=== PATIENT | male | born 1970 | race Caucasian/White ===

== ENCOUNTER 2024-11-08 00:07 | Emergency (ER) | payer MEDICAID, SELFPAY ==
--- NOTE | 2024-11-08 | ECG_ITS ---
Test Reason : CHEST PAIN Blood Pressure : */* mmHG Vent. Rate : 49 BPM Atrial Rate : 49 BPM P-R Int : 144 ms QRS Dur : 80 ms QT Int : 466 ms P-R-T Axes : 80 74 90 degrees QTcB Int : 420 ms Sinus bradycardia Septal infarct , age undetermined Abnormal ECG No previous ECGs available Referred By: Scott Trujillo Electronically Signed By: JUAN JOSE BORRERO MD
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
[2024-11-08 00:17] VITALS: BP 97/56; PULSE 52; RESP 20; TEMP 37; O2SAT 100
[2024-11-08 00:38] VITALS: BP 106/64; PULSE 70; O2SAT 98
[2024-11-08 00:42] VITALS: BP 90/53; PULSE 54; RESP 16; TEMP 37; O2SAT 100; BMI 21.7
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
[2024-11-08 01:13] LABS: MANUAL DIFF FLAG NO
[2024-11-08 01:19] LABS: Basophils Percent Auto 0.7 % (0-2); Eosinophils Absolute Auto 0.1 X10*3/uL (0.0-0.4); Eosinophils Percent Auto 1.3 % (0-4); Hematocrit 38.4 % (42.0-52.0); Hemoglobin 12.8 g/dl (14.0-18.0); Imm Gran Abs Auto 0.01 X10*3/uL (0.00-0.03); Imm Gran Pct Auto 0.2 % (0.0-0.4); Lymphocytes Absolute Auto 1.4 X10*3/uL (1.2-4.9); Mean Corpuscular HGB Conc 33.3 g/dl (31.0-36.0); Mean Corpuscular Hemoglobin 29.2 pg (27.0-33.0); Mean Corpuscular Volume 87.5 fL (80.0-98.0); Mean Platelet Volume 10.2 fL (9.4-12.4); Monocytes Absolute Auto 0.7 X10*3/uL (0.1-1.2); Monocytes Percent Auto 14.7 % (2-11); Neutrophils Absolute Auto 2.4 x10*3/uL (2.0-8.3); Neutrophils Percent Auto 53.1 % (45-73); Platelet Count 173 X10*3/uL (160-400); Red Blood Count 4.39 X10*6/uL (4.60-5.80); Red Cell Distribution Width 14.2 % (11.0-16.0); White Blood Count 4.6 X10*3/uL (4.8-10.8)
[2024-11-08 01:26] LABS: INTERNATIONAL NORM RATIO 1.1 (0.9-1.1); Prothrombin Time 12.4 SEC (10.9-12.4)
[2024-11-08 01:28] LABS: Partial Thromboplastin Time 34.9 SEC (26.0-36.8)
[2024-11-08 01:34] LABS: Anion Gap 13 (12-20); Blood Urea Nitrogen 13 mg/dL (9-16); Calcium 9.1 mg/dL (8.4-10.2); Carbon Dioxide 25 mmol/L (22-29); Chloride 105 mmol/L (96-108); Creatinine Clr Calc Pharmacy 91.5; Estimated Glomerular Filt Rate > 60; Glucose Random 102 mg/dL (60-115); Potassium 3.9 mmol/L (3.3-5.1); Sodium 139 mmol/L (135-145); Troponin-I High Sensitivity 3.1 ng/L (<3.5-35.0)
[2024-11-08] MEDS: Azithromycin 500 MG TABLET PO (02:35)
[2024-11-08 02:36] VITALS: BP 100/62; PULSE 59; RESP 16; O2SAT 97
[2024-11-08 03:54] LABS: Troponin-I High Sensitivity 3.6 ng/L (<3.5-35.0)
[2024-11-08] MEDS: Morphine Sulfate 4 MG/ML CARTRIDGE IVPUSH (04:02)
--- NOTE | 2024-11-08 04:06 | PC.NURSE ---
pt medicated per dec. notified NORMAN Peraleso
[2024-11-08 05:54] VITALS: BP 90/63; PULSE 45; RESP 16; TEMP 37; O2SAT 98
[2024-11-08 06:02] VITALS: BP 90/63; PULSE 48; RESP 16; TEMP 37; O2SAT 98
== END 2024-11-08 06:00 | disposition home or self-care (01) ==
LOC: HO.ED 05:51
PROVIDERS: Emergency Medicine; Emergency Provider Emergency Medicine Emergency Medical Services
DX: R07.9 Chest pain, unspecified (principal); S02.19XA Other fracture of base of skull, initial encounter for closed fracture; Y04.2XXA Assault by strike against or bumped into by another person, initial encounter; R00.1 Bradycardia, unspecified; Y93.9 Activity, unspecified; Y92.9 Unspecified place or not applicable; Y99.9 Unspecified external cause status
CPT/HCPCS: 36415; 70450; 70486; 80048; 84484; 85025; 85610; 85730; 93005; 96374; 99284; 99285; J2270

== ENCOUNTER → 2024-11-08 00:29 | Outpatient (BNV) | payer MEDICAID, SELFPAY | PROVIDERS: Emergency Provider Emergency Medicine Emergency Medical Services; Visit Provider Internal Medicine Cardiovascular Disease | DX: R94.31 Abnormal electrocardiogram [ECG] [EKG] (principal) | CPT/HCPCS: 93010 ==

== ENCOUNTER → 2024-11-08 00:52 | Outpatient (BNV) | payer MEDICAID, SELFPAY | PROVIDERS: Emergency Provider Emergency Medicine; Visit Provider Radiology Diagnostic Radiology | DX: S02.85XA Fracture of orbit, unspecified, initial encounter for closed fracture (principal); H05.89 Other disorders of orbit; G31.89 Other specified degenerative diseases of nervous system; I67.82 Cerebral ischemia; H05.222 Edema of left orbit | CPT/HCPCS: 70450; 70486 ==